=== PATIENT | female | born 1985 | race Caucasian/White ===

== ENCOUNTER 2021-05-17 03:41 | Emergency (ER) | payer BC ==
[~2021-05-17] VITALS: Ht 152.4 cm; Wt 79.4 kg
[~2021-05-17 03:41] MED LIST: BUTRANS1 EAC3 TRANSDERM; FLEXERIL; FLEXERIL PO; NORCO 10-325 T1 EACH PO; PREDNISONE 10 M10 MG PO; TOPAMAX 100 MG100 MG PO; TOPAMAX50 MG PO
[2021-05-17 04:38] LABS: CREATININE 0.7 mg/dL (0.6-1.0)
[2021-05-17 04:41] LABS: ABSOLUTE NEUTROPHILS 6.7 thou/uL (1.4-8.2); BASOPHILS 0.3 % (0.0-2.0); EOSINOPHILS 0.2 % (0.0-3.0); HEMATOCRIT 43.5 % (37.0-47.0); HEMOGLOBIN 14.4 gm/dL (12.0-15.0); LYMPHOCYTES 19.7 % (24.0-44.0); MCV 90.9 fL (80.0-100.0); MONOCYTES 5.5 % (1.0-8.0); PLATELET COUNT 263 thou/uL (150-400); POLYS 74.3 % (36.0-66.0); RBC 4.79 mil/uL (4.20-5.00); RDW 12.6 % (10.5-14.5); WBC 9.1 thou/uL (4.0-11.0)
[2021-05-17 04:44] LABS: ALBUMIN 3.9 g/dL (3.4-5.0); MAGNESIUM 1.8 mg/dL (1.8-2.4); TOTAL BILIRUBIN 0.3 mg/dL (0.2-1.0); TOTAL PROTEIN 7.4 g/dL (6.4-8.2)
[2021-05-17] MEDS ORDERED: APAP W/CODEINE1 TA2 PO (05:01)
[2021-05-17] MEDS ORDERED: TIZANIDINE HCL 22 M1 PO (05:02)
[2021-05-17] MEDS ORDERED: ZOFRAN ODT4 MG PO (05:09)
[2021-05-17 05:30] VITALS: BP 136/85
== END 2021-05-17 05:35 | disposition home or self-care (01) ==
LOC: ER 03:41
PROVIDERS: Emergency Medicine
DX: R19.7 Diarrhea, unspecified (principal); Z20.822 Contact with and (suspected) exposure to COVID-19; R11.0 Nausea; Z88.5 Allergy status to narcotic agent; Z79.899 Other long term (current) drug therapy; Z90.49 Acquired absence of other specified parts of digestive tract